=== PATIENT | female | born 1935 | race Caucasian/White ===

== ENCOUNTER → 2016-08-23 | Outpatient (CLI) | payer MEDICARE, BC | LOC: MC.RAD 14:20 | DX: Z12.31 Encounter for screening mammogram for malignant neoplasm of breast (principal) ==

== ENCOUNTER → 2017-09-20 | Outpatient (CLI) | payer MEDICARE, BC | LOC: MC.RAD 13:53 | DX: Z12.31 Encounter for screening mammogram for malignant neoplasm of breast (principal) ==

== ENCOUNTER → 2018-09-23 | Outpatient (CLI) | payer MEDICARE, BC | LOC: MC.RAD 13:10 | DX: Z12.31 Encounter for screening mammogram for malignant neoplasm of breast (principal) ==

== ENCOUNTER 2019-09-10 12:49 | Outpatient (CLI) | payer MEDICARE, BC ==
[2019-09-10] VITALS (8 sets, daily range): BP systolic 88–152; BP diastolic 46–70; PULSE 78–123; TEMP 97.9
[~2019-09-10] VITALS: Ht 160 cm; Wt 68.2 kg
[~2019-09-10 12:49] MED LIST: BETAPACE 80MG80 MG PO; COLACE 100100 MG/CAP PO; LUTEIN20 M1 PO; MULTI VITAMINS1 TAB PO; OMEGA-3 1000 MG1 CAP PO; PROTONIX20 MG PO; TOPROL XL 25MG25 MG PO; VITAMIN D31000 I1 PO
[2019-09-10] MEDS ORDERED: BETAPACE 80MG80 MG PO (13:31)
[2019-09-10] MEDS ORDERED: DECADRON 4MG TAB4 MG PO (13:32)
--- NOTE | 2019-09-10 13:33 | NUR ---
TO RM 7 CALL LIGHT IN REACH WILL CALL FOR RIDE HOME
[2019-09-10 14:29] LABS: BASO % 0.2 % (0.0-2.0); EOS % 0.1 % (0-4.0); GRAN # 10.4 (1.4-6.5); GRAN % 84.3 % (42.2-75.2); HEMATOCRIT 46.8 % (37.0-47.0); HEMOGLOBIN 15.6 g/dl (12.5-16.0); LYMPH # 1.5 (1.2-3.4); LYMPH % 12.3 % (20.0-51.0); MEAN CELL VOLUME 91 fl (80.0-100.0); MEAN CORPUSCULAR HEMOGLOBIN 30 pg (27.0-31.0); MEAN CORPUSCULAR HGB CONC 33 g/dl (33.0-37.0); MEAN PLATELET VOLUME 10.5 fl (7.4-10.4); MONO # 0.3 (0.1-0.6); MONO % 2.3 % (1.7-9.3); PLATELET COUNT 302 K/mm3 (130-400); RED BLOOD COUNT 5.16 M/mm3 (4.10-5.30); REDCELL DISTRIBUTION WIDTH-CV 13.8 % (11.5-14.5)
[2019-09-10 14:32] LABS: ALBUMIN 3.5 gm/dL (3.5-5.0); BILIRUBIN,TOTAL 0.8 mg/dL (0.0-1.0); CALCIUM 9.3 mg/dL (8.4-10.2); CREATININE, serum 0.82 (0.52-1.25); POTASSIUM 4.7 mmol/L (3.4-5.0); TOTAL PROTEIN 6.4 gm/dL (6.4-8.2)
--- NOTE | 2019-09-10 15:30 | NUR ---
TO RM 7 PER CART FOLLOWING AN THORACENTESIS. ALERT ORIENTED X3, TALKING TO STAFF. HEART RATE ELEVATED AND IRREGULAR. DR FLORES CALLED AND UPDATED. ORDER FOR EKG TO BE OBTAINED. RECEIVED APPLE JUICE. PATIENT DENIES ANY UNUSUAL SHORTNESS OF BREATH. STATED SHE IS BREATHING MUCH EASIER. DENIES CHEST PAIN.
--- NOTE | 2019-09-10 15:45 | NUR ---
TOLERATING APPLE JUICE WELL. DENIES ANY CHEST PAIN OR INCREASED SHORNESS OF BREATH.
--- NOTE | 2019-09-10 15:55 | NUR ---
SIPPING APPLE JUICE. EKG OBTAINED
--- NOTE | 2019-09-10 16:17 | NUR ---
PATIENT RESTING QUIETLY. HEART TONES REGULAR. PATIENT DENIES ANY DISTRESS OR SHORTNESS OF BREATH AT THIS TIME.
--- NOTE | 2019-09-10 16:30 | NUR ---
ATE 100% AND 2 CUPS OF APPLE JUICE. PATIENT DENIES N/V OR ANY PAIN. RESPIRATIONS EVEN AND NONLABORED. SATS 99% ON 3L AT HOME.
--- NOTE | 2019-09-10 16:50 | NUR ---
RECEIVED DISHCARGE INSTRUCTIONS. NS 1 L COMPLETE ORDERED. NEW CAP APPLIED RECEIVED DISCHARGE INSTRUCTIONS AND VERBALIZED UNDERSTANDING. CALLED BY PATIENT TO BE PICKED UP. ASSISTED PATIENT DRESSED AND INTO WC.
--- NOTE | 2019-09-10 17:09 | NUR ---
DISCHARGED PER WC BY NURSING STAFF TO PRIVATE CAR IN CARE OF BATSHEVA.
== END 2019-09-10 17:24 | disposition home or self-care (01) ==
LOC: SDCO 12:49
PROVIDERS: Internal Medicine Pulmonary Disease
DX: C34.91 Malignant neoplasm of unspecified part of right bronchus or lung (principal); J91.0 Malignant pleural effusion; Z82.49 Family history of ischemic heart disease and other diseases of the circulatory system; Z87.891 Personal history of nicotine dependence
CPT/HCPCS: C1751; C1892; J2270; J2405; J7030

== ENCOUNTER → 2019-11-30 | Outpatient (CLI) | payer MEDICARE, BC ==
[2019-11-30] VITALS (10 sets, daily range): BP systolic 81–113; BP diastolic 32–92; PULSE 67–83; TEMP 98
[~2019-11-30] VITALS: Ht 160 cm; Wt 65.5 kg
[~2019-11-30] MED LIST changes: +DECADRON 4MG TAB4 MG PO; +KLOR-CON SPRIN10 MEQ PO; +NATURAL MAGNES200 MG PO; +ZOFRAN ODT4 MG PO; +ZYRTEC ALLERGY10 MG PO
--- NOTE | 2019-11-30 09:05 | NUR ---
Patient brought back to [facility] via cart. Alert and oriented. Patient placed on monitors, BP low. Patient denies any symptoms. X-ray made aware of orders. Denies any pain or SOB. Placed back on 2L oxygen. Call christine within reach. Will continue to monitor.
--- NOTE | 2019-11-30 09:10 | NUR ---
updated on patient status. Verbalized understanding.
--- NOTE | 2019-11-30 09:30 | NUR ---
X-ray in patients room. Requesting muffin and water at this time. Will continue to monitor.
--- NOTE | 2019-11-30 10:00 | NUR ---
MD made aware of hypotension. States he will speak with patient when able.
--- NOTE | 2019-11-30 10:15 | NUR ---
Tolerating food and drink without difficulty. States she does not feel dizzy at all. Will continue to monitor.
--- NOTE | 2019-11-30 10:45 | NUR ---
MD in room speaking with patient. States she is able to be discharged at this time.
--- NOTE | 2019-11-30 11:15 | NUR ---
Discharge instructions reviewed with patient, verbalized understanding. Reinstated to drink gatorade like had recommended. Patient to get dressed at this time. Will monitor.
--- NOTE | 2019-11-30 11:25 | NUR ---
Patient brought down to lobby via wheel chair. pulled up to front door. Assisted into car. All belongings in hand, including portable oxygen.
== END ==
LOC: SDCO 06:48
DX: J90 Pleural effusion, not elsewhere classified (principal)
CPT/HCPCS: 19804

== ENCOUNTER 2019-12-10 10:30 | Outpatient (RCR) | payer MEDICARE, BC ==
--- NOTE | 2019-09-17 11:30 | NUR ---
here for cares. with sterile technique left upper arm PICC dressing change done with insertion site cleansed with chloraprep x 1, chlorhexidine impregnated disk applied, skin prep, stat lock, and tegaderm applied. no signs or symptoms of IV complications noted. no concerns voiced. re-wrapped with fernanda to protect catheter. to return next week for cares. voiced understanding of instructions.
[2019-09-17 11:54] VITALS: BP 119/52; PULSE 60; TEMP 97.5
[2019-09-17 12:47] LABS: HEMATOCRIT 46.7 % (37.0-47.0); HEMOGLOBIN 15.7 g/dl (12.5-16.0); MEAN CELL VOLUME 93 fl (80.0-100.0); MEAN CORPUSCULAR HEMOGLOBIN 31 pg (27.0-31.0); MEAN CORPUSCULAR HGB CONC 34 g/dl (33.0-37.0); MEAN PLATELET VOLUME 11.3 fl (7.4-10.4); PLATELET COUNT 214 K/mm3 (130-400); RED BLOOD COUNT 5.05 M/mm3 (4.10-5.30); REDCELL DISTRIBUTION WIDTH-CV 14.3 % (11.5-14.5)
[2019-09-17 12:50] LABS: ALBUMIN 3.1 gm/dL (3.5-5.0); BILIRUBIN,TOTAL 0.7 mg/dL (0.0-1.0); CALCIUM 9.2 mg/dL (8.4-10.2); CREATININE, serum 0.71 (0.52-1.25); MAGNESIUM 2.4 mg/dL (1.6-2.3); POTASSIUM 3.9 mmol/L (3.4-5.0); TOTAL PROTEIN 5.9 gm/dL (6.4-8.2)
[2019-09-17 12:53] LABS: LYMPHOCYTE 13 % (20.0-51.0); NEUTROPHILS 86 % (42.0-75.2)
[2019-09-17 12:54] LABS: PLATELET ESTIMATE NORMAL (NORMAL)
[2019-09-24 11:29] VITALS: BP 114/49; PULSE 72; TEMP 97.6
--- NOTE | 2019-09-24 11:30 | NUR ---
here for cares. With sterile technique left upper arm PICC dressing change done with insertion site cleansed with ChloraPrep 1, chlorhexidine impregnated disc applied, skin prep, StatLock, and Tegaderm applied. No signs or symptoms of IV complications noted. No concerns voiced. Arm wrapped with Papito to protect catheter. Patient return next week for cares. Patient voiced understanding of instructions.
[2019-09-24 11:41] LABS: HEMATOCRIT 40.8 % (37.0-47.0); HEMOGLOBIN 13.7 g/dl (12.5-16.0); MEAN CELL VOLUME 91 fl (80.0-100.0); MEAN CORPUSCULAR HEMOGLOBIN 30 pg (27.0-31.0); MEAN CORPUSCULAR HGB CONC 34 g/dl (33.0-37.0); MEAN PLATELET VOLUME 12.2 fl (7.4-10.4); REDCELL DISTRIBUTION WIDTH-CV 13.5 % (11.5-14.5)
[2019-09-24 11:49] LABS: ALBUMIN 2.8 gm/dL (3.5-5.0); BILIRUBIN,TOTAL 0.8 mg/dL (0.0-1.0); CALCIUM 8.2 mg/dL (8.4-10.2); CREATININE, serum 0.48 (0.52-1.25); PLATELET COUNT 27 K/mm3 (130-400); POTASSIUM 3.5 mmol/L (3.4-5.0); TOTAL PROTEIN 5.2 gm/dL (6.4-8.2)
[2019-09-24 14:13] LABS: BAND 10 % (0-10); BASOPHIL 1 % (0-2); EOSINOPHIL 3 % (0-4); LYMPHOCYTE 64 % (20.0-51.0); NEUTROPHILS 9 % (42.0-75.2); PLATELET ESTIMATE DECREASED (NORMAL)
[2019-09-25 11:59] LABS: PATHOLOGY DIFF REVIEW OK +
--- NOTE | 2019-09-26 09:00 | NUR ---
PT'S CAPS WERE CHANGED ON 09/17/2019 BY THIS RN.
--- NOTE | 2019-10-01 10:30 | NUR ---
Here for cares. with sterile technique left upper arm PICC dressing change done with insertion site cleansed with chloraprep x 1, chlorhexidine impregnated disk applied, skin prep, stat lock, and tegaderm applied. no signs or symptoms of IV complications noted. no concerns voiced. to continue with cares in [facility] as scheduled. voiced understanding of instructions.
[2019-10-01 10:47] VITALS: BP 101/68; PULSE 83; TEMP 97.9
[2019-10-01 10:47] LABS: HEMATOCRIT 39.3 % (37.0-47.0); HEMOGLOBIN 13.1 g/dl (12.5-16.0); MEAN CELL VOLUME 92 fl (80.0-100.0); MEAN CORPUSCULAR HEMOGLOBIN 31 pg (27.0-31.0); MEAN CORPUSCULAR HGB CONC 33 g/dl (33.0-37.0); MEAN PLATELET VOLUME 11.4 fl (7.4-10.4); PLATELET COUNT 141 K/mm3 (130-400); RED BLOOD COUNT 4.27 M/mm3 (4.10-5.30); REDCELL DISTRIBUTION WIDTH-CV 14.6 % (11.5-14.5)
[2019-10-01 11:00] LABS: ALBUMIN 2.9 gm/dL (3.5-5.0); BILIRUBIN,TOTAL 0.6 mg/dL (0.0-1.0); CALCIUM 8.3 mg/dL (8.4-10.2); CREATININE, serum 0.61 (0.52-1.25); MAGNESIUM 1.6 mg/dL (1.6-2.3); TOTAL PROTEIN 5.4 gm/dL (6.4-8.2)
[2019-10-01 11:13] LABS: BAND 28 % (0-10); EOSINOPHIL 1 % (0-4); LYMPHOCYTE 3 % (20.0-51.0); METAMYELOCYTE 11 % (0-0); MYELOCYTE 8 % (0-0); NEUTROPHILS 36 % (42.0-75.2)
[2019-10-01 11:16] LABS: PLATELET ESTIMATE NORMAL (NORMAL)
[2019-10-08 13:22] LABS: HEMOGLOBIN 10.9 g/dl (12.5-16.0); MEAN CELL VOLUME 93 fl (80.0-100.0); MEAN CORPUSCULAR HEMOGLOBIN 31 pg (27.0-31.0); MEAN CORPUSCULAR HGB CONC 33 g/dl (33.0-37.0); MEAN PLATELET VOLUME 10.6 fl (7.4-10.4); PLATELET COUNT 307 K/mm3 (130-400); RED BLOOD COUNT 3.56 M/mm3 (4.10-5.30); REDCELL DISTRIBUTION WIDTH-CV 15.3 % (11.5-14.5)
[2019-10-08 13:24] LABS: HEMATOCRIT 33.2 % (37.0-47.0)
[2019-10-08 13:30] VITALS: BP 120/74; PULSE 69; TEMP 98
[2019-10-08 13:30] LABS: BILIRUBIN,TOTAL 0.7 mg/dL (0.0-1.0); CALCIUM 8.3 mg/dL (8.4-10.2); CREATININE, serum 0.52 (0.52-1.25); MAGNESIUM 1.9 mg/dL (1.6-2.3); POTASSIUM 3.6 mmol/L (3.4-5.0); TOTAL PROTEIN 5.4 gm/dL (6.4-8.2)
[2019-10-08 17:26] LABS: BAND 1 % (0-10); LYMPHOCYTE 13 % (20.0-51.0); NEUTROPHILS 84 % (42.0-75.2); PLATELET ESTIMATE NORMAL (NORMAL)
[2019-10-15 10:36] LABS: HEMOGLOBIN 10.8 g/dl (12.5-16.0); MEAN CELL VOLUME 93 fl (80.0-100.0); MEAN CORPUSCULAR HEMOGLOBIN 30 pg (27.0-31.0); MEAN CORPUSCULAR HGB CONC 33 g/dl (33.0-37.0); MEAN PLATELET VOLUME 12.3 fl (7.4-10.4); RED BLOOD COUNT 3.55 M/mm3 (4.10-5.30); REDCELL DISTRIBUTION WIDTH-CV 14.6 % (11.5-14.5)
[2019-10-15 10:51] VITALS: BP 93/58; PULSE 70; TEMP 98
[2019-10-15 10:51] LABS: ALBUMIN 3.3 gm/dL (3.5-5.0); BILIRUBIN,TOTAL 0.8 mg/dL (0.0-1.0); CALCIUM 8.7 mg/dL (8.4-10.2); CREATININE, serum 0.53 (0.52-1.25); MAGNESIUM 1.5 mg/dL (1.6-2.3); POTASSIUM 3.4 mmol/L (3.4-5.0); TOTAL PROTEIN 5.7 gm/dL (6.4-8.2)
[2019-10-15 11:15] LABS: HEMATOCRIT 32.9 % (37.0-47.0)
[2019-10-15 11:16] LABS: PLATELET COUNT 46 K/mm3 (130-400)
[2019-10-15 12:07] LABS: BAND 8 % (0-10); EOSINOPHIL 2 % (0-4); HYPOCHROMIA 1+; METAMYELOCYTE 4 % (0-0); NEUTROPHILS 40 % (42.0-75.2); NUCLEATED RED BLOOD CELL 2 (0-6); POLYCHROMASIA 1+
[2019-10-15 12:08] LABS: ANISOCYTOSIS 1+; PLATELET ESTIMATE DECREASED (NORMAL)
[2019-10-15 12:09] LABS: LYMPHOCYTE 33 % (20.0-51.0)
[2019-10-22 10:27] VITALS: BP 108/48; PULSE 71; TEMP 97.5
[2019-10-22 10:51] LABS: HEMOGLOBIN 10.4 g/dl (12.5-16.0); MEAN CELL VOLUME 95 fl (80.0-100.0); MEAN CORPUSCULAR HEMOGLOBIN 31 pg (27.0-31.0); MEAN CORPUSCULAR HGB CONC 33 g/dl (33.0-37.0); MEAN PLATELET VOLUME 11.1 fl (7.4-10.4); PLATELET COUNT 136 K/mm3 (130-400); RED BLOOD COUNT 3.35 M/mm3 (4.10-5.30); REDCELL DISTRIBUTION WIDTH-CV 17.6 % (11.5-14.5)
[2019-10-22 10:55] LABS: HEMATOCRIT 31.8 % (37.0-47.0)
[2019-10-22 11:03] LABS: ALBUMIN 3.4 gm/dL (3.5-5.0); BILIRUBIN,TOTAL 0.6 mg/dL (0.0-1.0); CALCIUM 8.5 mg/dL (8.4-10.2); CREATININE, serum 0.59 (0.52-1.25); POTASSIUM 3.6 mmol/L (3.4-5.0); TOTAL PROTEIN 5.8 gm/dL (6.4-8.2)
[2019-10-22 11:47] LABS: ANISOCYTOSIS 2+; BAND 17 % (0-10); EOSINOPHIL 1 % (0-4); HYPOCHROMIA 1+; LYMPHOCYTE 10 % (20.0-51.0); METAMYELOCYTE 11 % (0-0); NEUTROPHILS 55 % (42.0-75.2); NUCLEATED RED BLOOD CELL 1 (0-6); PLATELET ESTIMATE NORMAL (NORMAL); POLYCHROMASIA 1+
[2019-10-23 08:11] LABS: PATHOLOGY DIFF REVIEW OK
[2019-10-29 10:07] VITALS: BP 124/38; PULSE 70; TEMP 97.8
[2019-10-29 10:12] LABS: MEAN CELL VOLUME 96 fl (80.0-100.0); MEAN CORPUSCULAR HGB CONC 32 g/dl (33.0-37.0); PLATELET COUNT 357 K/mm3 (130-400); RED BLOOD COUNT 3.19 M/mm3 (4.10-5.30); REDCELL DISTRIBUTION WIDTH-CV 19.2 % (11.5-14.5)
[2019-10-29 10:14] LABS: HEMATOCRIT 30.7 % (37.0-47.0); HEMOGLOBIN 9.9 g/dl (12.5-16.0); MEAN CORPUSCULAR HEMOGLOBIN 31 pg (27.0-31.0)
[2019-10-29 11:43] LABS: BAND 7 % (0-10); LYMPHOCYTE 36 % (20.0-51.0); NEUTROPHILS 54 % (42.0-75.2); PLATELET ESTIMATE NORMAL (NORMAL)
[2019-10-29 11:45] LABS: HYPOCHROMIA 1+
[2019-10-29 11:46] LABS: ANISOCYTOSIS 2+
[2019-11-05 10:47] LABS: MEAN CELL VOLUME 95 fl (80.0-100.0); MEAN CORPUSCULAR HGB CONC 32 g/dl (33.0-37.0); PLATELET COUNT 68 K/mm3 (130-400); RED BLOOD COUNT 2.92 M/mm3 (4.10-5.30); REDCELL DISTRIBUTION WIDTH-CV 17.7 % (11.5-14.5)
--- NOTE | 2019-11-05 10:50 | NUR ---
here for cares. With sterile technique left upper arm PICC dressing change done with insertion site cleansed with ChloraPrep 1, chlorhexidine impregnated disc applied, skin prep, StatLock, and Tegaderm applied. Signs or symptoms of IV complications noted no concerns voiced. Patient instructed to continue with care nurse in [facility] unit. Patient voiced understanding of instructions.
[2019-11-05 10:53] VITALS: BP 123/75; PULSE 83; TEMP 97.5
[2019-11-05 10:53] LABS: HEMATOCRIT 27.7 % (37.0-47.0); HEMOGLOBIN 8.9 g/dl (12.5-16.0); MEAN CORPUSCULAR HEMOGLOBIN 30 pg (27.0-31.0)
[2019-11-05 10:57] LABS: ALBUMIN 3.7 gm/dL (3.5-5.0); BILIRUBIN,TOTAL 0.6 mg/dL (0.0-1.0); CALCIUM 8.9 mg/dL (8.4-10.2); CREATININE, serum 0.48 (0.52-1.25); POTASSIUM 3.5 mmol/L (3.4-5.0); TOTAL PROTEIN 6.2 gm/dL (6.4-8.2)
[2019-11-05 11:29] LABS: BAND 20 % (0-10); EOSINOPHIL 2 % (0-4); LYMPHOCYTE 31 % (20.0-51.0); NEUTROPHILS 43 % (42.0-75.2); PLATELET ESTIMATE DECREASED (NORMAL)
[2019-11-12 10:45] LABS: ALBUMIN 3.6 gm/dL (3.5-5.0); BILIRUBIN,TOTAL 0.5 mg/dL (0.0-1.0); CALCIUM 8.4 mg/dL (8.4-10.2); CREATININE, serum 0.57 (0.52-1.25); POTASSIUM 3.5 mmol/L (3.4-5.0); TOTAL PROTEIN 6.2 gm/dL (6.4-8.2)
[2019-11-12 10:57] LABS: MEAN CELL VOLUME 98 fl (80.0-100.0); MEAN CORPUSCULAR HGB CONC 32 g/dl (33.0-37.0); MEAN PLATELET VOLUME 10.7 fl (7.4-10.4); PLATELET COUNT 154 K/mm3 (130-400); RED BLOOD COUNT 2.99 M/mm3 (4.10-5.30); REDCELL DISTRIBUTION WIDTH-CV 21.4 % (11.5-14.5)
[2019-11-12 11:10] LABS: ANISOCYTOSIS 2+; BAND 29 % (0-10); BASOPHIL 2 % (0-2); LYMPHOCYTE 18 % (20.0-51.0); METAMYELOCYTE 7 % (0-0); MYELOCYTE 2 % (0-0); NEUTROPHILS 37 % (42.0-75.2); PLATELET ESTIMATE NORMAL (NORMAL)
[2019-11-12 11:11] LABS: HEMATOCRIT 29.4 % (37.0-47.0); HEMOGLOBIN 9.4 g/dl (12.5-16.0); MEAN CORPUSCULAR HEMOGLOBIN 31 pg (27.0-31.0)
[2019-11-12 12:19] VITALS: BP 131/78; PULSE 81; TEMP 97.6
--- NOTE | 2019-11-18 10:07 | NUR ---
LEFT MESSAGE TO RETURN PHONE CALL FOR ID SCREENING CALL
[2019-11-19 10:19] VITALS: BP 156/83; PULSE 87; TEMP 97.5
[2019-11-19 10:55] LABS: MEAN CELL VOLUME 100 fl (80.0-100.0); MEAN CORPUSCULAR HGB CONC 32 g/dl (33.0-37.0); MEAN PLATELET VOLUME 10.1 fl (7.4-10.4); PLATELET COUNT 292 K/mm3 (130-400); RED BLOOD COUNT 2.88 M/mm3 (4.10-5.30); REDCELL DISTRIBUTION WIDTH-CV 21.7 % (11.5-14.5)
[2019-11-19 10:58] LABS: HEMATOCRIT 28.7 % (37.0-47.0); HEMOGLOBIN 9.1 g/dl (12.5-16.0); MEAN CORPUSCULAR HEMOGLOBIN 32 pg (27.0-31.0)
[2019-11-19 11:11] LABS: ALBUMIN 3.8 gm/dL (3.5-5.0); BILIRUBIN,TOTAL 0.7 mg/dL (0.0-1.0); CREATININE, serum 0.47 (0.52-1.25); MAGNESIUM 1.6 mg/dL (1.6-2.3); POTASSIUM 3.6 mmol/L (3.4-5.0); TOTAL PROTEIN 6.4 gm/dL (6.4-8.2)
[2019-11-19 11:37] LABS: BAND 1 % (0-10); LYMPHOCYTE 25 % (20.0-51.0); METAMYELOCYTE 2 % (0-0); MYELOCYTE 4 % (0-0); NEUTROPHILS 68 % (42.0-75.2); PLATELET ESTIMATE NORMAL (NORMAL)
[2019-11-19 11:39] LABS: ANISOCYTOSIS 2+
[2019-11-19 11:40] LABS: OVALOCYTES 1+
[2019-11-26 10:19] VITALS: BP 109/71; PULSE 82; TEMP 98.8
[2019-11-26 10:44] LABS: MEAN CELL VOLUME 99 fl (80.0-100.0); MEAN CORPUSCULAR HGB CONC 32 g/dl (33.0-37.0); MEAN PLATELET VOLUME 11.4 fl (7.4-10.4); PLATELET COUNT 66 K/mm3 (130-400); REDCELL DISTRIBUTION WIDTH-CV 19.5 % (11.5-14.5)
[2019-11-26 10:46] LABS: HEMATOCRIT 25.7 % (37.0-47.0); HEMOGLOBIN 8.3 g/dl (12.5-16.0); MEAN CORPUSCULAR HEMOGLOBIN 32 pg (27.0-31.0)
[2019-11-26 10:56] LABS: ALBUMIN 3.8 gm/dL (3.5-5.0); BILIRUBIN,TOTAL 0.6 mg/dL (0.0-1.0); CALCIUM 8.9 mg/dL (8.4-10.2); CREATININE, serum 0.51 (0.52-1.25); MAGNESIUM 1.4 mg/dL (1.6-2.3); POTASSIUM 3.2 mmol/L (3.4-5.0); TOTAL PROTEIN 6.3 gm/dL (6.4-8.2)
[2019-11-26 11:34] LABS: BAND 12 % (0-10); BASOPHIL 2 % (0-2); EOSINOPHIL 3 % (0-4); LYMPHOCYTE 32 % (20.0-51.0); NEUTROPHILS 45 % (42.0-75.2); NUCLEATED RED BLOOD CELL 1 (0-6)
[2019-11-26 11:37] LABS: PLATELET ESTIMATE DECREASED (NORMAL)
[2019-11-26 11:38] LABS: ANISOCYTOSIS 1+
[2019-12-03 11:03] VITALS: BP 108/52; PULSE 75; TEMP 98
[2019-12-03 11:31] LABS: ALBUMIN 3.1 gm/dL (3.5-5.0); BILIRUBIN,TOTAL 0.5 mg/dL (0.0-1.0); CALCIUM 8.4 mg/dL (8.4-10.2); CREATININE, serum 0.62 (0.52-1.25); MAGNESIUM 1.6 mg/dL (1.6-2.3); POTASSIUM 4.1 mmol/L (3.4-5.0); TOTAL PROTEIN 5.5 gm/dL (6.4-8.2)
[2019-12-03 11:32] LABS: MEAN CELL VOLUME 102 fl (80.0-100.0); MEAN CORPUSCULAR HGB CONC 32 g/dl (33.0-37.0); PLATELET COUNT 135 K/mm3 (130-400); RED BLOOD COUNT 2.59 M/mm3 (4.10-5.30); REDCELL DISTRIBUTION WIDTH-CV 21.9 % (11.5-14.5)
[2019-12-03 11:45] LABS: HEMATOCRIT 26.5 % (37.0-47.0); HEMOGLOBIN 8.4 g/dl (12.5-16.0); MEAN CORPUSCULAR HEMOGLOBIN 32 pg (27.0-31.0)
[2019-12-03 12:18] LABS: BAND 11 % (0-10); BASOPHIL 1 % (0-2); LYMPHOCYTE 23 % (20.0-51.0); METAMYELOCYTE 2 % (0-0); NEUTROPHILS 56 % (42.0-75.2); PLATELET ESTIMATE NORMAL (NORMAL)
[~2019-12-10] VITALS: Ht 160 cm; Wt 62.1 kg
--- NOTE | 2019-12-10 10:30 | NUR ---
here for cares. With sterile technique left upper arm PICC dressing change done with insertion site cleansed with ChloraPrep 1, chlorhexidine impregnated disc applied, skin prep, StatLock, and Tegaderm applied. No signs or symptoms of IV complications noted. No concerns voiced. Reviewed wrapped with Papito to protect catheter. Patient is to return next week for cares. Patient voiced understanding of instructions.
[2019-12-10 11:00] VITALS: BP 126/44; PULSE 66; TEMP 98.4
[2019-12-10 11:20] LABS: MEAN CELL VOLUME 104 fl (80.0-100.0); MEAN CORPUSCULAR HGB CONC 31 g/dl (33.0-37.0); MEAN PLATELET VOLUME 10.2 fl (7.4-10.4); PLATELET COUNT 308 K/mm3 (130-400); RED BLOOD COUNT 2.44 M/mm3 (4.10-5.30); REDCELL DISTRIBUTION WIDTH-CV 20.8 % (11.5-14.5)
[2019-12-10 11:26] LABS: ALBUMIN 3.3 gm/dL (3.5-5.0); BILIRUBIN,TOTAL 0.4 mg/dL (0.0-1.0); CALCIUM 8.7 mg/dL (8.4-10.2); CREATININE, serum 0.5 (0.52-1.25); MAGNESIUM 1.8 mg/dL (1.6-2.3); POTASSIUM 3.6 mmol/L (3.4-5.0); TOTAL PROTEIN 5.7 gm/dL (6.4-8.2)
[2019-12-10 11:57] LABS: BAND 4 % (0-10); LYMPHOCYTE 24 % (20.0-51.0); NEUTROPHILS 70 % (42.0-75.2); PLATELET ESTIMATE NORMAL (NORMAL)
[2019-12-10 12:03] LABS: HEMATOCRIT 25.3 % (37.0-47.0); HEMOGLOBIN 7.9 g/dl (12.5-16.0); MEAN CORPUSCULAR HEMOGLOBIN 32 pg (27.0-31.0)
[2019-12-11] VITALS (9 sets, daily range): BP systolic 100–118; BP diastolic 37–81; PULSE 70–80; TEMP 97.9–98.4
== END 2019-12-16 | disposition still patient (30) ==
LOC: EUO
PROVIDERS: Internal Medicine
DX: C34.01 Malignant neoplasm of right main bronchus (principal); Z95.9 Presence of cardiac and vascular implant and graft, unspecified
CPT/HCPCS: J7050; P9016

== ENCOUNTER 2020-01-07 10:30 | Outpatient (RCR) | payer MEDICARE, BC ==
[2019-12-17 09:33] VITALS: BP 104/56; PULSE 70; TEMP 98
[2019-12-17 09:51] LABS: HEMOGLOBIN 10.9 g/dl (12.5-16.0); MEAN CELL VOLUME 96 fl (80.0-100.0); MEAN CORPUSCULAR HEMOGLOBIN 30 pg (27.0-31.0); MEAN CORPUSCULAR HGB CONC 32 g/dl (33.0-37.0); MEAN PLATELET VOLUME 10.6 fl (7.4-10.4); PLATELET COUNT 78 K/mm3 (130-400); RED BLOOD COUNT 3.61 M/mm3 (4.10-5.30); REDCELL DISTRIBUTION WIDTH-CV 18.8 % (11.5-14.5)
[2019-12-17 09:53] LABS: HEMATOCRIT 34.5 % (37.0-47.0)
[2019-12-17 10:00] LABS: BAND 20 % (0-10); LYMPHOCYTE 26 % (20.0-51.0); NEUTROPHILS 48 % (42.0-75.2); PLATELET ESTIMATE DECREASED (NORMAL)
[2019-12-17 10:01] LABS: ALBUMIN 3.5 gm/dL (3.5-5.0); BILIRUBIN,TOTAL 0.4 mg/dL (0.0-1.0); CALCIUM 8.6 mg/dL (8.4-10.2); CREATININE, serum 0.5 (0.52-1.25); MAGNESIUM 1.5 mg/dL (1.6-2.3); POTASSIUM 3.6 mmol/L (3.4-5.0); TOTAL PROTEIN 5.9 gm/dL (6.4-8.2)
--- NOTE | 2019-12-24 10:15 | NUR ---
here for cares. Left upper arm PICC intact. Sterile dressing change done to PICC with insertion site cleansed with ChloraPrep 1, chlorhexidine impregnated disc applied, skin prep, StatLock, and Tegaderm applied. No signs or symptoms of IV complications noted. No concerns voiced. Patient to return next week for cares. Patient voiced understanding of instructions.
[2019-12-24 10:36] LABS: HEMOGLOBIN 11.5 g/dl (12.5-16.0); MEAN CELL VOLUME 96 fl (80.0-100.0); MEAN CORPUSCULAR HEMOGLOBIN 30 pg (27.0-31.0); MEAN CORPUSCULAR HGB CONC 32 g/dl (33.0-37.0); MEAN PLATELET VOLUME 10.7 fl (7.4-10.4); PLATELET COUNT 112 K/mm3 (130-400); REDCELL DISTRIBUTION WIDTH-CV 19.4 % (11.5-14.5)
[2019-12-24 10:40] LABS: HEMATOCRIT 36.4 % (37.0-47.0)
[2019-12-24 10:42] LABS: ALBUMIN 3.6 gm/dL (3.5-5.0); BILIRUBIN,TOTAL 0.5 mg/dL (0.0-1.0); CALCIUM 8.9 mg/dL (8.4-10.2); CREATININE, serum 0.63 (0.52-1.25); MAGNESIUM 1.6 mg/dL (1.6-2.3); POTASSIUM 3.8 mmol/L (3.4-5.0); TOTAL PROTEIN 6.1 gm/dL (6.4-8.2)
[2019-12-24 10:45] VITALS: BP 133/82; PULSE 89; TEMP 98.5
[2019-12-24 10:49] LABS: BAND 22 % (0-10); LYMPHOCYTE 14 % (20.0-51.0); METAMYELOCYTE 1 % (0-0); MYELOCYTE 2 % (0-0); PLATELET ESTIMATE DECREASED (NORMAL)
[2019-12-24 10:50] LABS: NEUTROPHILS 56 % (42.0-75.2)
[2019-12-31 11:00] VITALS: BP 122/73; PULSE 66; TEMP 98.7
[2019-12-31 11:15] LABS: MEAN CELL VOLUME 97 fl (80.0-100.0); MEAN CORPUSCULAR HEMOGLOBIN 31 pg (27.0-31.0); MEAN CORPUSCULAR HGB CONC 32 g/dl (33.0-37.0); MEAN PLATELET VOLUME 10.3 fl (7.4-10.4); PLATELET COUNT 214 K/mm3 (130-400); RED BLOOD COUNT 3.27 M/mm3 (4.10-5.30); REDCELL DISTRIBUTION WIDTH-CV 19.4 % (11.5-14.5)
[2019-12-31 11:33] LABS: ALBUMIN 3.6 gm/dL (3.5-5.0); BILIRUBIN,TOTAL 0.6 mg/dL (0.0-1.0); CREATININE, serum 0.5 (0.52-1.25); MAGNESIUM 1.6 mg/dL (1.6-2.3); POTASSIUM 3.5 mmol/L (3.4-5.0)
[2019-12-31 11:34] LABS: HEMATOCRIT 31.6 % (37.0-47.0)
[2019-12-31 12:12] LABS: ANISOCYTOSIS 3+; BAND 5 % (0-10); LYMPHOCYTE 18 % (20.0-51.0); NEUTROPHILS 69 % (42.0-75.2); PLATELET ESTIMATE NORMAL (NORMAL)
[~2020-01-07] VITALS: Ht 160 cm; Wt 61.2 kg
--- NOTE | 2020-01-07 10:20 | NUR ---
here for cares. Left upper arm PICC intact. PICC dressing changes done within sterile technique with insertion site cleansed with ChloraPrep 1, chlorhexidine impregnated disc applied, skin prep, StatLock, and Tegaderm applied. No signs or symptoms of IV complications noted. No concerns voiced. Arm wrapped with Papito to protect catheter. Patient to return next week for cares. Patient voiced understanding of instructions.
[~2020-01-07 10:30] MED LIST changes: +ASPIRIN E.C. 8181 MG PO
[2020-01-07 10:52] LABS: HEMOGLOBIN 10.1 g/dl (12.5-16.0); MEAN CELL VOLUME 96 fl (80.0-100.0); MEAN CORPUSCULAR HEMOGLOBIN 31 pg (27.0-31.0); MEAN CORPUSCULAR HGB CONC 32 g/dl (33.0-37.0); MEAN PLATELET VOLUME 10.5 fl (7.4-10.4); PLATELET COUNT 85 K/mm3 (130-400); RED BLOOD COUNT 3.26 M/mm3 (4.10-5.30); REDCELL DISTRIBUTION WIDTH-CV 18.3 % (11.5-14.5)
[2020-01-07 10:57] LABS: ALBUMIN 3.7 gm/dL (3.5-5.0); BILIRUBIN,TOTAL 0.5 mg/dL (0.0-1.0); CALCIUM 8.7 mg/dL (8.4-10.2); CREATININE, serum 0.52 (0.52-1.25); MAGNESIUM 1.4 mg/dL (1.6-2.3); POTASSIUM 3.4 mmol/L (3.4-5.0); TOTAL PROTEIN 6.1 gm/dL (6.4-8.2)
[2020-01-07 10:58] VITALS: BP 108/74; PULSE 77; TEMP 98.3
[2020-01-07 11:28] LABS: HEMATOCRIT 31.4 % (37.0-47.0)
[2020-01-07 11:41] LABS: BAND 16 % (0-10); BASOPHIL 1 % (0-2); EOSINOPHIL 1 % (0-4); LYMPHOCYTE 27 % (20.0-51.0); METAMYELOCYTE 1 % (0-0); NEUTROPHILS 52 % (42.0-75.2); PLATELET ESTIMATE DECREASED (NORMAL)
== END 2020-01-14 07:07 | disposition home or self-care (01) ==
LOC: EUO 10:30
PROVIDERS: Internal Medicine
DX: C34.90 Malignant neoplasm of unspecified part of unspecified bronchus or lung (principal); C78.2 Secondary malignant neoplasm of pleura; C79.51 Secondary malignant neoplasm of bone; C79.71 Secondary malignant neoplasm of right adrenal gland

== ENCOUNTER 2020-01-22 09:41 | Emergency (ER) | payer MEDICARE, BC ==
[~2020-01-22] VITALS: Ht 157.5 cm; Wt 61.0 kg
[2020-01-22 09:55] VITALS: TEMP 97.7
[2020-01-22 10:37] LABS: BASO % 0.4 % (0.0-2.0); EOS # 0.2 (0.0-0.7); EOS % 1.4 % (0-4.0); GRAN # 7.9 (1.4-6.5); GRAN % 70.6 % (42.2-75.2); HEMOGLOBIN 10.8 g/dl (12.5-16.0); LYMPH # 1.9 (1.2-3.4); LYMPH % 16.7 % (20.0-51.0); MEAN CELL VOLUME 97 fl (80.0-100.0); MEAN CORPUSCULAR HEMOGLOBIN 32 pg (27.0-31.0); MEAN CORPUSCULAR HGB CONC 33 g/dl (33.0-37.0); MEAN PLATELET VOLUME 9.9 fl (7.4-10.4); MONO # 1.1 (0.1-0.6); MONO % 10.3 % (1.7-9.3); PLATELET COUNT 206 K/mm3 (130-400); RED BLOOD COUNT 3.42 M/mm3 (4.10-5.30); REDCELL DISTRIBUTION WIDTH-CV 19.6 % (11.5-14.5)
[2020-01-22 10:42] LABS: HEMATOCRIT 33.2 % (37.0-47.0)
[2020-01-22 10:50] LABS: INR 1.2 (0.8-3.0); PROTHROMBIN TIME 13.8 SECONDS (9.7-12.8)
[2020-01-22 10:53] LABS: PARTIAL THROMBOPLASTIN TIME 33.6 SECONDS (26.0-37.0)
[2020-01-22 11:06] LABS: ALANINE AMINOTRANSFERASE 9 U/L (4-34); ALBUMIN 3.8 gm/dL (3.5-5.0); ALKALINE PHOSPHATASE 113 U/L (50-136); ANION GAP 9 mmol/L (7-16); AST,SGOT 34 U/L (15-37); BILIRUBIN,TOTAL 0.5 mg/dL (0.0-1.0); BLOOD UREA NITROGEN 13 mg/dL (7-17); CALCIUM 8.8 mg/dL (8.4-10.2); CARBON DIOXIDE 28 mmol/L (22-30); CHLORIDE 103 mmol/L (98-107); CREATININE, serum 0.61 (0.52-1.25); GLUCOSE 121 mg/dL (74-106); LIPASE 48 U/L (23-300); POTASSIUM 3.4 mmol/L (3.4-5.0); SODIUM 139 mmol/L (137-145); TOTAL PROTEIN 6.4 gm/dL (6.4-8.2)
[2020-01-22 11:16] LABS: TROPONIN-I < 0.012 ng/mL (0.000-0.035)
[2020-01-22 13:50] VITALS: BP 121/70; PULSE 84
== END 2020-01-22 13:50 | disposition home or self-care (01) ==
LOC: COL.ER 09:41
PROVIDERS: Emergency Medicine
DX: J90 Pleural effusion, not elsewhere classified (principal); Z79.82 Long term (current) use of aspirin; Z85.118 Personal history of other malignant neoplasm of bronchus and lung; Z88.1 Allergy status to other antibiotic agents

== ENCOUNTER 2020-02-03 06:59 | Day surgery (SDC) | payer MEDICARE, BC ==
[~2020-02-03] VITALS: Ht 157.5 cm; Wt 60.0 kg
[2020-02-03 07:56] VITALS: BP 103/71; PULSE 87; TEMP 97.2
[2020-02-03] MEDS ORDERED: PROAIR HFA0.09 MG/AC IH (08:45)
[2020-02-03] MEDS ORDERED: CEPHALEXIN500 M1 PO (09:50)
[2020-02-03] MEDS ORDERED: NORCO 325 MG-51 TAB PO (09:51)
[2020-02-03 10:00] VITALS: BP 88/64; PULSE 60; TEMP 98.3
--- NOTE | 2020-02-03 10:00 | NUR ---
The patient arrived back to [facility] from [facility] at this time. The patient appears alert and oriented and denies any pain or nausea at this time. Post procedure vital signs were started at this time. The patient agrees to try some apple juice at this time. Radiology was called to complete her post procedure portable chest x-ray. Will continue to monitor the patient.
[2020-02-03 10:15] VITALS: BP 100/60; PULSE 73
--- NOTE | 2020-02-03 10:15 | NUR ---
Lab was called and blood was obtained for her weekly lab draw per Dr. Mcdaniels's orders. REGINALDO Norris with [facility] is coming to complete the patient's PICC line dressing change per protocol.
[2020-02-03 10:25] LABS: HEMOGLOBIN 10.3 g/dl (12.5-16.0); MEAN CELL VOLUME 99 fl (80.0-100.0); MEAN CORPUSCULAR HEMOGLOBIN 32 pg (27.0-31.0); MEAN CORPUSCULAR HGB CONC 32 g/dl (33.0-37.0); MEAN PLATELET VOLUME 9.9 fl (7.4-10.4); PLATELET COUNT 193 K/mm3 (130-400); RED BLOOD COUNT 3.27 M/mm3 (4.10-5.30); REDCELL DISTRIBUTION WIDTH-CV 17.6 % (11.5-14.5)
[2020-02-03 10:27] LABS: HEMATOCRIT 32.5 % (37.0-47.0)
[2020-02-03 10:30] VITALS: BP 119/57; PULSE 73
--- NOTE | 2020-02-03 10:30 | NUR ---
Discharge instructions were reviewed with the patient at this time. She verbalized understanding and has no questions for the nurse at this time. The nurse assisted the patient to get dressed and she appeared to tolerate the activity well.
--- NOTE | 2020-02-03 10:35 | NUR ---
While assisting the patient to get dressed it appeared that the dressing covering her drain site had lifted and was no longer attached to the skin. The dressing was reinforced at this time with a large tegaderm.
--- NOTE | 2020-02-03 10:40 | NUR ---
The patient was escorted out via wheelchair to a private vehicle by REGINALDO Christiansen. The patient's belongings and discharge paperwork were sent with her. The patient's is present to drive her home.
[2020-02-03 10:41] LABS: ALBUMIN 3.1 gm/dL (3.5-5.0); BILIRUBIN,TOTAL 0.4 mg/dL (0.0-1.0); CALCIUM 8.6 mg/dL (8.4-10.2); CREATININE, serum 0.62 (0.52-1.25); POTASSIUM 3.8 mmol/L (3.4-5.0); TOTAL PROTEIN 5.6 gm/dL (6.4-8.2)
[2020-02-03 10:49] LABS: BAND 4 % (0-10); EOSINOPHIL 4 % (0-4); LYMPHOCYTE 17 % (20.0-51.0); NEUTROPHILS 65 % (42.0-75.2); PLATELET ESTIMATE NORMAL (NORMAL)
[2020-02-03 10:57] LABS: MAGNESIUM 1.9 mg/dL (1.6-2.3)
--- NOTE | 2020-02-03 11:13 | NUR ---
Pt teaching regarding pleurx drain was completed with pt prior to placement of drain. Education folder was provided, procedure for drainage was reviewed along with printed instructions. Pt does report having sensitive skin and so I asked [facility] staff to send her with some skin prep also. She reports that her daughter in law is a nurse and can help with the drainage and will work with her also. Faxed Dr Lindquist's order to [place] upon completion.
== END 2020-02-03 11:50 | disposition home or self-care (01) ==
LOC: SDCO 06:59
PROVIDERS: Internal Medicine
DX: C78.01 Secondary malignant neoplasm of right lung (principal); C34.01 Malignant neoplasm of right main bronchus; J91.8 Pleural effusion in other conditions classified elsewhere; Z20.828 Contact with and (suspected) exposure to other viral communicable diseases; E78.5 Hyperlipidemia, unspecified; K21.9 Gastro-esophageal reflux disease without esophagitis; I48.91 Unspecified atrial fibrillation; I10 Essential (primary) hypertension; R00.0 Tachycardia, unspecified; M62.81 Muscle weakness (generalized); M19.90 Unspecified osteoarthritis, unspecified site; Z99.81 Dependence on supplemental oxygen; Z87.891 Personal history of nicotine dependence; Z79.899 Other long term (current) drug therapy; Z92.21 Personal history of antineoplastic chemotherapy; Z79.82 Long term (current) use of aspirin; Z85.118 Personal history of other malignant neoplasm of bronchus and lung
CPT/HCPCS: A7048; C1729; J2704; J7120

== ENCOUNTER 2020-02-15 11:09 | Emergency (ER) | payer MEDICARE, BC ==
[~2020-02-15] VITALS: Ht 157.5 cm; Wt 54.5 kg
[~2020-02-15 11:09] MED LIST changes: +CEPHALEXIN500 M1 PO; +NORCO 325 MG-51 TAB PO; +PROAIR HFA0.09 MG/AC IH
[2020-02-15 11:25] VITALS: TEMP 98.3
[2020-02-15 13:42] VITALS: BP 115/47; PULSE 90
== END 2020-02-15 13:35 | disposition home or self-care (01) ==
LOC: COL.ER 11:09
DX: R06.02 Shortness of breath (principal); J90 Pleural effusion, not elsewhere classified; I10 Essential (primary) hypertension; K21.9 Gastro-esophageal reflux disease without esophagitis; Z79.82 Long term (current) use of aspirin; Z85.118 Personal history of other malignant neoplasm of bronchus and lung; Z90.710 Acquired absence of both cervix and uterus; Z82.49 Family history of ischemic heart disease and other diseases of the circulatory system; Z82.0 Family history of epilepsy and other diseases of the nervous system
CPT/HCPCS: Q9967

== ENCOUNTER 2020-03-09 10:00 | Outpatient (RCR) | payer MEDICARE, BC ==
--- NOTE | 2020-01-14 10:30 | NUR ---
here for cares. PICC intact left upper arm. PICC dressing change done with insertion site cleansed with ChloraPrep 1, chlorhexidine impregnated disc applied, skin prep, StatLock, and Tegaderm applied. No signs or symptoms of IV complications noted. No concerns voiced. Patient return next week for cares. Patient voiced understanding of instructions.
[2020-01-14 10:57] LABS: HEMOGLOBIN 10.5 g/dl (12.5-16.0); MEAN CELL VOLUME 97 fl (80.0-100.0); MEAN CORPUSCULAR HEMOGLOBIN 31 pg (27.0-31.0); MEAN CORPUSCULAR HGB CONC 32 g/dl (33.0-37.0); MEAN PLATELET VOLUME 10.5 fl (7.4-10.4); PLATELET COUNT 119 K/mm3 (130-400); RED BLOOD COUNT 3.35 M/mm3 (4.10-5.30); REDCELL DISTRIBUTION WIDTH-CV 19.9 % (11.5-14.5)
[2020-01-14 10:59] LABS: HEMATOCRIT 32.4 % (37.0-47.0)
[2020-01-14 11:05] LABS: ALBUMIN 3.9 gm/dL (3.5-5.0); BILIRUBIN,TOTAL 0.5 mg/dL (0.0-1.0); CALCIUM 9.1 mg/dL (8.4-10.2); CREATININE, serum 0.61 (0.52-1.25); MAGNESIUM 1.5 mg/dL (1.6-2.3); POTASSIUM 3.8 mmol/L (3.4-5.0); TOTAL PROTEIN 6.4 gm/dL (6.4-8.2)
[2020-01-14 11:22] LABS: BAND 12 % (0-10); LYMPHOCYTE 26 % (20.0-51.0); METAMYELOCYTE 3 % (0-0); NEUTROPHILS 55 % (42.0-75.2); PLATELET ESTIMATE DECREASED (NORMAL)
[2020-01-21 11:11] VITALS: BP 112/74; PULSE 84; TEMP 98.2
[2020-01-28 10:21] VITALS: BP 140/79; PULSE 88; TEMP 98.5
--- NOTE | 2020-01-28 10:30 | NUR ---
here for cares. PICC intact left upper arm. Sterile dressing change done with insertion site cleansed with ChloraPrep 1, chlorhexidine impregnated disc applied, skin prep, StatLock, and Tegaderm applied. No signs or symptoms of IV complications noted. No concerns voiced. Arm wrapped with Papito to protect catheter. Patient to return as scheduled in the [facility] unit for cares. Patient voiced understanding of instructions.
--- NOTE | 2020-02-03 09:50 | NUR ---
Pt seen today in ambulatory and requested her picc dressing changed today with labs.this nurse contacted guzman donaldson at office.ok to draw labs today that are scheduled for per Guzman donaldson.
--- NOTE | 2020-02-03 10:15 | NUR ---
PICC intact left upper arm wiht sterile dressing change done with insertion site cleansed with chloraprep x 1, chlorhexidine impregnated disk applied, skin prep, stat lock, and tegaderm applied. no signs or symptopms of IV complications noted. no concerns voiced. re-wrapped with an fernanda to protect catheter. cap changed and port flushed with 10ml normal saline with good blood return noted. to return next to for cares. voiced understanding of instructions.
[2020-02-11 10:30] VITALS: BP 99/64; PULSE 55; TEMP 98.7
--- NOTE | 2020-02-11 10:30 | NUR ---
Here for cares. PICC intact left upper arm with sterile dressing change done with insertion site cleansed with chloraprep x 1, chlorhexidine impreganted disk applied, skin prep, stat lock, and tegaderm applied. no signs or symptoms of IV complications noted. no concerns voiced. re-wrapped with fernanda to protect catheter. to return next week for cares. voiced understanding of instructions.
[2020-02-11 10:57] LABS: HEMOGLOBIN 11.4 g/dl (12.5-16.0)
[2020-02-11 11:12] LABS: HEMATOCRIT 35.3 % (37.0-47.0)
[2020-02-18 11:04] LABS: HEMOGLOBIN 11.2 g/dl (12.5-16.0); MEAN CELL VOLUME 98 fl (80.0-100.0); MEAN CORPUSCULAR HEMOGLOBIN 32 pg (27.0-31.0); MEAN CORPUSCULAR HGB CONC 32 g/dl (33.0-37.0); PLATELET COUNT 243 K/mm3 (130-400); RED BLOOD COUNT 3.56 M/mm3 (4.10-5.30); REDCELL DISTRIBUTION WIDTH-CV 16.2 % (11.5-14.5)
[2020-02-18 11:07] LABS: HEMATOCRIT 34.9 % (37.0-47.0)
[2020-02-18 11:14] LABS: ALBUMIN 3.1 gm/dL (3.5-5.0); BILIRUBIN,TOTAL 0.7 mg/dL (0.0-1.0); CALCIUM 8.7 mg/dL (8.4-10.2); CREATININE, serum 0.69 (0.52-1.25); MAGNESIUM 1.9 mg/dL (1.6-2.3); POTASSIUM 4.2 mmol/L (3.4-5.0); TOTAL PROTEIN 5.9 gm/dL (6.4-8.2)
[2020-02-18 11:27] VITALS: BP 111/69; PULSE 73; TEMP 98.3
[2020-02-18 11:41] LABS: BAND 4 % (0-10); BASOPHIL 1 % (0-2); EOSINOPHIL 4 % (0-4); LYMPHOCYTE 18 % (20.0-51.0); NEUTROPHILS 64 % (42.0-75.2); PLATELET ESTIMATE NORMAL (NORMAL)
--- NOTE | 2020-02-25 10:30 | NUR ---
Here for cares. PICC intact left upper arm with sterile dressing change done with insertion site cleansed with chloraprep x 1, chlorhexidine impregnated disk applied, skin prep, stat lock, and tegaderm applied. no signs or symptoms of IV complications noted. to return next week for cares. voiced understanding of instructions.
[2020-02-25 11:04] VITALS: BP 108/32; PULSE 77; TEMP 97.5
[2020-02-25 11:07] LABS: MEAN CELL VOLUME 97 fl (80.0-100.0); MEAN CORPUSCULAR HEMOGLOBIN 31 pg (27.0-31.0); MEAN CORPUSCULAR HGB CONC 32 g/dl (33.0-37.0); MEAN PLATELET VOLUME 10.7 fl (7.4-10.4); PLATELET COUNT 115 K/mm3 (130-400); RED BLOOD COUNT 3.21 M/mm3 (4.10-5.30); REDCELL DISTRIBUTION WIDTH-CV 15.9 % (11.5-14.5)
[2020-02-25 11:19] LABS: ALBUMIN 3.2 gm/dL (3.5-5.0); BILIRUBIN,TOTAL 0.6 mg/dL (0.0-1.0); CALCIUM 8.9 mg/dL (8.4-10.2); CREATININE, serum 0.89 (0.52-1.25); MAGNESIUM 2.3 mg/dL (1.6-2.3); TOTAL PROTEIN 5.9 gm/dL (6.4-8.2)
[2020-02-25 11:20] LABS: POTASSIUM 4.7 mmol/L (3.4-5.0)
[2020-02-25 11:45] LABS: HEMATOCRIT 31.2 % (37.0-47.0)
[2020-02-25 12:03] LABS: BAND 33 % (0-10); LYMPHOCYTE 7 % (20.0-51.0); METAMYELOCYTE 1 % (0-0); NEUTROPHILS 54 % (42.0-75.2); PLATELET ESTIMATE DECREASED (NORMAL)
[2020-03-03 10:37] VITALS: BP 123/71; PULSE 81; TEMP 98.5
[2020-03-03 11:09] LABS: ALBUMIN 3.1 gm/dL (3.5-5.0); BILIRUBIN,TOTAL 0.4 mg/dL (0.0-1.0); CALCIUM 8.6 mg/dL (8.4-10.2); CREATININE, serum 0.6 (0.52-1.25); MAGNESIUM 1.9 mg/dL (1.6-2.3); POTASSIUM 3.8 mmol/L (3.4-5.0); TOTAL PROTEIN 5.5 gm/dL (6.4-8.2)
[2020-03-03 11:10] LABS: HEMOGLOBIN 10.6 g/dl (12.5-16.0); MEAN CELL VOLUME 98 fl (80.0-100.0); MEAN CORPUSCULAR HEMOGLOBIN 31 pg (27.0-31.0); MEAN CORPUSCULAR HGB CONC 32 g/dl (33.0-37.0); MEAN PLATELET VOLUME 10.4 fl (7.4-10.4); PLATELET COUNT 185 K/mm3 (130-400); RED BLOOD COUNT 3.38 M/mm3 (4.10-5.30)
[2020-03-03 12:16] LABS: LYMPHOCYTE 10 % (20.0-51.0); METAMYELOCYTE 1 % (0-0); NEUTROPHILS 66 % (42.0-75.2); PLATELET ESTIMATE NORMAL (NORMAL)
[2020-03-03 12:17] LABS: BAND 14 % (0-10)
[~2020-03-09] VITALS: Ht 160 cm; Wt 57.9 kg
[~2020-03-09 10:00] MED LIST changes: +BENADRYL25 M2 PO
--- NOTE | 2020-03-09 10:30 | NUR ---
Here for cares. PICC intact left upper arm with sterile dressing change done with insertion site cleansed with chloraprep x 1, chlorhexidine impregnated disk applied, skin prep, stat lock, and tegaderm applied. no signs or symptoms of IV complications noted. no concerns voiced. re-wrapped with an fernanda to protect catheter. to continue with cares in [place]. voiced understanding of instructions.
[2020-03-09 10:49] LABS: HEMOGLOBIN 10.2 g/dl (12.5-16.0); MEAN CELL VOLUME 99 fl (80.0-100.0); MEAN CORPUSCULAR HEMOGLOBIN 32 pg (27.0-31.0); MEAN CORPUSCULAR HGB CONC 32 g/dl (33.0-37.0); MEAN PLATELET VOLUME 9.8 fl (7.4-10.4); PLATELET COUNT 230 K/mm3 (130-400); RED BLOOD COUNT 3.24 M/mm3 (4.10-5.30); REDCELL DISTRIBUTION WIDTH-CV 17.2 % (11.5-14.5)
[2020-03-09 10:59] LABS: ALBUMIN 3.2 gm/dL (3.5-5.0); BILIRUBIN,TOTAL 0.6 mg/dL (0.0-1.0); CALCIUM 8.8 mg/dL (8.4-10.2); CREATININE, serum 0.58 (0.52-1.25); MAGNESIUM 2.1 mg/dL (1.6-2.3); POTASSIUM 4.1 mmol/L (3.4-5.0); TOTAL PROTEIN 5.7 gm/dL (6.4-8.2)
[2020-03-09 11:07] VITALS: BP 105/54; PULSE 78; TEMP 97.8
[2020-03-09 11:24] LABS: HEMATOCRIT 31.9 % (37.0-47.0)
[2020-03-09 12:21] LABS: BAND 8 % (0-10); LYMPHOCYTE 5 % (20.0-51.0); NEUTROPHILS 81 % (42.0-75.2); PLATELET ESTIMATE NORMAL (NORMAL)
[2020-03-09 12:22] LABS: ANISOCYTOSIS 1+
[2020-03-09 12:23] LABS: STOMATOCYTE 2+
--- NOTE | 2020-03-16 16:39 | NUR ---
Pt son called to report pt is going into hospice,will no longer need picc cares at express
== END 2020-03-16 16:39 | disposition still patient (30) ==
LOC: EUO 10:00
PROVIDERS: Internal Medicine
DX: C34.01 Malignant neoplasm of right main bronchus (principal); C78.2 Secondary malignant neoplasm of pleura; C79.51 Secondary malignant neoplasm of bone; C79.71 Secondary malignant neoplasm of right adrenal gland